=== PATIENT | female | born 1950 | race Caucasian/White ===

== ENCOUNTER 2020-09-05 20:49 | Inpatient (IN) ==
[2020-09-05] MEDS ORDERED: Ipratropium/Albuterol Neb 3 ML ONE (21:03)
[2020-09-05] MEDS ORDERED: methylPREDNISolone 125 MG/2 ML VIAL IVP ONE (21:06)
[2020-09-05] MEDS ORDERED: Ipratropium/Albuterol Neb 3 ML IH ONE ×2 (21:06→21:08)
[2020-09-05 21:36] LABS: INR 1.3; Prothrombin Time 14.9 Seconds (9.4-12.1)
[2020-09-05 21:44] LABS: Basophils % 0.3 %; Eosinophils # 0.2 K/mcL (0.0-0.6); Eosinophils % 1.3 %; Immature Granulocytes % 1.5 % (0-4); Lymphocytes % 6.9 %; Mean Corpuscular HGB Conc 31.3 g/dL (31.6-35.5); Mean Corpuscular Hemoglobin 24.9 pg (28.0-33.3); Mean Corpuscular Volume 79.6 fL (83.0-100.0); Mean Platelet Volume 8.9 fL (9.4-12.4); Monocytes % 6.9 %; Neutrophils # 11.9 K/mcL (1.6-8.9); Nucleated Red Blood Cells 0.1 /100 WBC (0); Platelet Count 452 K/mcL (140-400); Red Blood Count 4.02 M/mcL (3.82-4.97); Red Cell Distribution Width 14.4 % (11.5-14.5); Segmented Neutrophils % 83.1 %; White Blood Count 14.3 K/mcL (4.3-11.1)
[2020-09-05 21:55] LABS: Alanine Aminotransferase 53 Units/L (7-52); Albumin 3.5 g/dL (3.5-5.7); Alkaline Phosphatase 117 Units/L (34-104); Aspartate Amino Transferase 77 Units/L (13-39); BUN/Creatinine Ratio 19 (6-26); Bilirubin,Direct 0.1 mg/dL (0.0-0.2); Bilirubin,Indirect 0.8 mg/dL (0.0-1.0); Bilirubin,Total 0.9 mg/dL (0.3-1.0); Blood Urea Nitrogen 18 mg/dL (8-23); Calcium 9.1 mg/dL (8.6-10.3); Carbon Dioxide 20 mEq/L (23-29); Chloride 101 mEq/L (98-107); Globulin 3.6 g/dL (2.4-3.5); Glucose 137 mg/dL (70-105); Osmolality,Calculated 280 (280-300); Sodium 133 mEq/L (136-145); Total Protein 7.1 g/dL (6.4-8.9); Troponin I < 0.03 ng/mL (< 0.04); eGFR For African Americans > 60 (> 60); eGFR For Non-African Americans 58 (> 60)
[2020-09-05 22:52] LABS: Adenovirus Not Detected (Not Detect); Coronavirus 229E Not Detected (Not Detect); Coronavirus HKU1 Not Detected (Not Detect); Coronavirus NL63 Not Detected (Not Detect); Coronavirus OC43 Not Detected (Not Detect); SARS-CoV-2 Not Detected (Not Detect)
[2020-09-05 22:53] LABS: Bordetella Pertussis Not Detected (Not Detect); Chlamydophila pneumoniae Not Detected (Not Detect); Human Metapneumovirus Not Detected (Not Detect); Human Rhinovirus/Enterovirus Not Detected (Not Detect); Influenza A Subtype 2009 H1 Not Detected (Not Detect); Influenza B Not Detected (Not Detect); Mycoplasma pneumoniae Not Detected (Not Detect); Parainfluenza Virus 1 Not Detected (Not Detect); Parainfluenza Virus 2 Not Detected (Not Detect); Parainfluenza Virus 3 Not Detected (Not Detect); Parainfluenza Virus 4 Not Detected (Not Detect); Respiratory Syncytial Virus Not Detected (Not Detect)
[2020-09-05] MEDS ORDERED: cefTRIAXone 1,000 MG in Water for inj. (sterile) 10 ML IVP ONE (23:17)
[2020-09-05] MEDS ORDERED: Azithromycin 500 MG in 0.9 % Sodium Chloride 250 ML IVPB ONE (23:17)
[2020-09-05] MEDS ORDERED: Acetaminophen IV 1,000 MG/100 ML INFUS..BTL IVPB ONE (23:20)
[2020-09-05] MEDS ORDERED: Ondansetron 4 MG/2 ML VIAL IVP PRN (23:38)
[2020-09-05] MEDS ORDERED: Naloxone 0.4 MG/ML INJ IVP PRN (23:38)
[2020-09-05] MEDS ORDERED: Furosemide 40 MG/4 ML VIAL IVP ONE (23:39)
[2020-09-06] MEDS ORDERED: Cefepime HCl 2,000 MG in 0.9 % Sodium Chloride Mini Bag 100 ML IVPB SCH
[2020-09-06] MEDS ORDERED: Vancomycin 1,250 MG/262.5 ML IV.SOLN IVPB ONE
[2020-09-06] MEDS ORDERED: Perflutren Lipid Microsphere 1.3 ML in 0.9 % Sodium Chloride 8.7 ML IVP PRN (00:24)
[2020-09-06 00:43] LABS: Bacteria,Urine Few per hpf (None-Few); Bilirubin,Urine Negative (Negative); Blood,Urine Negative (Negative); Clarity,Urine Turbid (Clear); Color,Urine Yellow (Yellow); Glucose,Urine (UA) Normal (Normal); Ketones,Urine Negative (Negative); Leukocyte Esterase,Urine Small (Negative); Mucus,Urine Few per lpf (None-Few); Nitrite,Urine Positive (Negative); Protein,Urine Trace mg/dL (Neg-Trace); RBC,Urine 0-3 per hpf (0-3); Specific Gravity,Urine 1.016 (1.010-1.025); Squamous Epithelial Cell,Urine Few per hpf (None-Few); Urobilinogen,Urine Normal (Normal)
[2020-09-06] MEDS: *HR* LORazepam 2 MG/ML VIAL IVP PRN (01:01)
[2020-09-06 02:34] LABS: ABG Base Excess -3 mEq/L (-2 to 3); ABG HCO3 21 mEq/L (21-27); ABG Oxygen Saturation 99 % (95-98); ABG PCO2 34 mmHg (35-45); ABG PO2 140 mmHg (85-104); ABG TCO2 22 mEq/L (20-26); Blood Gas Modality BiLevel
[2020-09-06] MEDS: Ipratropium/Albuterol Neb 3 ML IH SCH ×6 (03:50→23:22)
[2020-09-06 04:19] LABS: Basophils % 0.3 %; Eosinophils % 0.1 %; Hematocrit 30.5 % (35.3-44.9); Hemoglobin 9.7 g/dL (11.5-15.4); Immature Granulocytes % 1.5 % (0-4); Lymphocytes # 0.6 K/mcL (0.6-4.6); Lymphocytes % 5.9 %; Mean Corpuscular HGB Conc 31.8 g/dL (31.6-35.5); Mean Corpuscular Hemoglobin 25.1 pg (28.0-33.3); Mean Platelet Volume 8.7 fL (9.4-12.4); Monocytes # 0.2 K/mcL (0.0-1.3); Monocytes % 1.6 %; Neutrophils # 8.9 K/mcL (1.6-8.9); Platelet Count 366 K/mcL (140-400); Red Blood Count 3.86 M/mcL (3.82-4.97); Red Cell Distribution Width 14.4 % (11.5-14.5); Segmented Neutrophils % 90.6 %; White Blood Count 9.8 K/mcL (4.3-11.1)
[2020-09-06 04:39] LABS: BUN/Creatinine Ratio 18 (6-26); Blood Urea Nitrogen 19 mg/dL (8-23); Calcium 8.8 mg/dL (8.6-10.3); Carbon Dioxide 23 mEq/L (23-29); Chloride 102 mEq/L (98-107); Glucose 208 mg/dL (70-105); Osmolality,Calculated 288 (280-300); Potassium 3.5 mEq/L (3.5-5.1); Sodium 135 mEq/L (136-145); eGFR For African Americans > 60 (> 60); eGFR For Non-African Americans 53 (> 60)
[2020-09-06] MEDS: *HR* Heparin 5,000 UNIT/ML VIAL SQ SCH ×2 (06:07→17:47)
[2020-09-06] MEDS ORDERED: methylPREDNISolone 125 MG/2 ML VIAL IVP SCH (08:00)
[2020-09-06] MEDS: Cefepime HCl 2,000 MG in 0.9 % Sodium Chloride Mini Bag 100 ML IVPB SCH ×2 (12:10→23:39)
[2020-09-06] MEDS ORDERED: carvediloL 25 MG TABLET PO SCH (17:00)
[2020-09-06] MEDS: MethylPREDNISolone 40 MG/ML VIAL IVP SCH ×2 (17:40→23:39)
[2020-09-06] MEDS: Aspirin Enteric Coated 81 MG Tablet PO SCH (17:47)
[2020-09-06] MEDS: Metoprolol XL (24 HR) Succ 50 MG TAB.ER.24H PO SCH (17:53)
[2020-09-06] MEDS ORDERED: Azithromycin 500 MG in 0.9 % Sodium Chloride 250 ML IVPB SCH (18:00)
[2020-09-06] MEDS: hydrALAZINE 25 MG TABLET PO SCH (20:52)
[2020-09-06] MEDS: traZODone 50 MG TABLET PO SCH (20:52)
[2020-09-07 03:10] LABS: Basophils % 0.2 %; Hemoglobin 9.5 g/dL (11.5-15.4); Immature Granulocytes % 1.1 % (0-4); Lymphocytes % 5.1 %; Mean Corpuscular HGB Conc 31.7 g/dL (31.6-35.5); Mean Corpuscular Hemoglobin 25.7 pg (28.0-33.3); Mean Corpuscular Volume 81.1 fL (83.0-100.0); Mean Platelet Volume 8.8 fL (9.4-12.4); Monocytes # 0.8 K/mcL (0.0-1.3); Monocytes % 4.2 %; Neutrophils # 17.5 K/mcL (1.6-8.9); Platelet Count 413 K/mcL (140-400); Red Cell Distribution Width 14.1 % (11.5-14.5); Segmented Neutrophils % 89.4 %
[2020-09-07 03:13] LABS: White Blood Count 19.6 K/mcL (4.3-11.1)
[2020-09-07 03:27] LABS: BUN/Creatinine Ratio 25 (6-26); Blood Urea Nitrogen 21 mg/dL (8-23); Carbon Dioxide 21 mEq/L (23-29); Chloride 106 mEq/L (98-107); Glucose 188 mg/dL (70-105); Osmolality,Calculated 292 (280-300); Potassium 3.6 mEq/L (3.5-5.1); Sodium 137 mEq/L (136-145); eGFR For African Americans > 60 (> 60); eGFR For Non-African Americans > 60 (> 60)
[2020-09-07] MEDS: *HR* LORazepam 2 MG/ML VIAL IVP PRN (03:38)
[2020-09-07] MEDS: Ipratropium/Albuterol Neb 3 ML IH SCH ×5 (04:11→19:55)
[2020-09-07] MEDS: *HR* Heparin 5,000 UNIT/ML VIAL SQ SCH ×2 (06:03→17:27)
[2020-09-07] MEDS: Furosemide 40 MG/4 ML VIAL IVP SCH (08:26)
[2020-09-07] MEDS: Thiamine (B-1) 100 MG TABLET PO SCH (08:26)
[2020-09-07] MEDS: MethylPREDNISolone 40 MG/ML VIAL IVP SCH ×2 (08:26→17:27)
[2020-09-07] MEDS: Loratadine 10 MG TABLET PO SCH (08:27)
[2020-09-07] MEDS: Aspirin Enteric Coated 81 MG Tablet PO SCH (08:27)
[2020-09-07] MEDS: Metoprolol XL (24 HR) Succ 50 MG TAB.ER.24H PO SCH (08:27)
[2020-09-07] MEDS: Isosorbide MONOnitrate (24 HR) 60 MG TAB.ER.24H PO SCH (08:27)
[2020-09-07] MEDS: hydrALAZINE 25 MG TABLET PO SCH ×3 (08:27→20:12)
[2020-09-07] MEDS: PANTOPRAZOLE SODIUM 20 MG PO SCH (08:28)
[2020-09-07] MEDS: amLODIPine 5 MG TABLET PO SCH (08:28)
[2020-09-07] MEDS ORDERED: amLODIPine 5 MG TABLET PO SCH (09:00)
[2020-09-07] MEDS ORDERED: Metoprolol XL (24 HR) Succ 50 MG TAB.ER.24H PO SCH (09:00)
[2020-09-07] MEDS: Cefepime HCl 2,000 MG in 0.9 % Sodium Chloride Mini Bag 100 ML IVPB SCH (11:01)
[2020-09-07] MEDS: Doxycycline 100 MG in 0.9 % Sodium Chloride Mini Bag 100 ML IVPB SCH (17:26)
[2020-09-07] MEDS: traZODone 50 MG TABLET PO SCH (20:12)
[2020-09-08] MEDS: Ipratropium/Albuterol Neb 3 ML IH SCH ×6 (00:12→19:53)
[2020-09-08] MEDS: MethylPREDNISolone 40 MG/ML VIAL IVP SCH ×4 (00:13→23:42)
[2020-09-08] MEDS: Cefepime HCl 2,000 MG in 0.9 % Sodium Chloride Mini Bag 100 ML IVPB SCH ×3 (00:13→23:43)
[2020-09-08] MEDS: *HR* LORazepam 2 MG/ML VIAL IVP PRN (00:55)
[2020-09-08] MEDS: *HR* Heparin 5,000 UNIT/ML VIAL SQ SCH ×2 (05:33→17:43)
[2020-09-08] MEDS: Doxycycline 100 MG in 0.9 % Sodium Chloride Mini Bag 100 ML IVPB SCH ×2 (05:33→17:44)
[2020-09-08 07:10] LABS: Basophils % 0.1 %; Hematocrit 28.8 % (35.3-44.9); Hemoglobin 9.1 g/dL (11.5-15.4); Immature Granulocytes % 1.6 % (0-4); Lymphocytes % 6.5 %; Mean Corpuscular HGB Conc 31.6 g/dL (31.6-35.5); Mean Corpuscular Hemoglobin 24.8 pg (28.0-33.3); Mean Corpuscular Volume 78.5 fL (83.0-100.0); Mean Platelet Volume 8.6 fL (9.4-12.4); Monocytes # 0.6 K/mcL (0.0-1.3); Monocytes % 3.8 %; Neutrophils # 13.1 K/mcL (1.6-8.9); Nucleated Red Blood Cells 0.2 /100 WBC (0); Platelet Count 416 K/mcL (140-400); Red Blood Count 3.67 M/mcL (3.82-4.97); Red Cell Distribution Width 14.5 % (11.5-14.5); White Blood Count 14.9 K/mcL (4.3-11.1)
[2020-09-08 07:38] LABS: BUN/Creatinine Ratio 31 (6-26); Blood Urea Nitrogen 27 mg/dL (8-23); Calcium 8.8 mg/dL (8.6-10.3); Carbon Dioxide 23 mEq/L (23-29); Chloride 105 mEq/L (98-107); Glucose 165 mg/dL (70-105); Osmolality,Calculated 295 (280-300); Potassium 3.6 mEq/L (3.5-5.1); Sodium 138 mEq/L (136-145); eGFR For African Americans > 60 (> 60); eGFR For Non-African Americans > 60 (> 60)
[2020-09-08] MEDS: hydrALAZINE 25 MG TABLET PO SCH ×3 (09:01→19:33)
[2020-09-08] MEDS: Thiamine (B-1) 100 MG TABLET PO SCH (09:02)
[2020-09-08] MEDS: Loratadine 10 MG TABLET PO SCH (09:02)
[2020-09-08] MEDS: Metoprolol XL (24 HR) Succ 50 MG TAB.ER.24H PO SCH (09:02)
[2020-09-08] MEDS: Aspirin Enteric Coated 81 MG Tablet PO SCH (09:03)
[2020-09-08] MEDS: Isosorbide MONOnitrate (24 HR) 60 MG TAB.ER.24H PO SCH (09:03)
[2020-09-08] MEDS: amLODIPine 5 MG TABLET PO SCH (09:03)
[2020-09-08] MEDS: Furosemide 40 MG/4 ML VIAL IVP SCH (09:04)
[2020-09-08] MEDS: PANTOPRAZOLE SODIUM 20 MG PO SCH ×2 (11:45→12:10)
[2020-09-08 16:19] LABS: ANA IgG by ELISA NONE DETECTED (None Detected); Serine Protease-3 Antibody 1 AU/mL (0-19)
[2020-09-08] MEDS: traZODone 50 MG TABLET PO SCH (19:33)
[2020-09-09] MEDS: Ipratropium/Albuterol Neb 3 ML IH SCH ×7 (00:03→23:51)
[2020-09-09 04:21] LABS: Basophils % 0.2 %; Hematocrit 30.9 % (35.3-44.9); Hemoglobin 9.5 g/dL (11.5-15.4); Immature Granulocytes % 3.2 % (0-4); Lymphocytes # 1.2 K/mcL (0.6-4.6); Lymphocytes % 7.1 %; Mean Corpuscular HGB Conc 30.7 g/dL (31.6-35.5); Mean Corpuscular Hemoglobin 24.7 pg (28.0-33.3); Mean Corpuscular Volume 80.3 fL (83.0-100.0); Mean Platelet Volume 8.7 fL (9.4-12.4); Monocytes # 0.7 K/mcL (0.0-1.3); Monocytes % 4.5 %; Neutrophils # 13.8 K/mcL (1.6-8.9); Nucleated Red Blood Cells 0.1 /100 WBC (0); Platelet Count 483 K/mcL (140-400); Red Blood Count 3.85 M/mcL (3.82-4.97); Red Cell Distribution Width 14.5 % (11.5-14.5); White Blood Count 16.3 K/mcL (4.3-11.1)
[2020-09-09 04:45] LABS: BUN/Creatinine Ratio 31 (6-26); Blood Urea Nitrogen 30 mg/dL (8-23); Calcium 9.1 mg/dL (8.6-10.3); Carbon Dioxide 24 mEq/L (23-29); Chloride 105 mEq/L (98-107); Glucose 198 mg/dL (70-105); Osmolality,Calculated 300 (280-300); Potassium 3.8 mEq/L (3.5-5.1); Sodium 139 mEq/L (136-145); eGFR For African Americans > 60 (> 60); eGFR For Non-African Americans 58 (> 60)
[2020-09-09] MEDS: *HR* Heparin 5,000 UNIT/ML VIAL SQ SCH ×2 (06:55→18:03)
[2020-09-09] MEDS: Doxycycline 100 MG in 0.9 % Sodium Chloride Mini Bag 100 ML IVPB SCH ×2 (06:56→18:04)
[2020-09-09] MEDS: Aspirin Enteric Coated 81 MG Tablet PO SCH (09:11)
[2020-09-09] MEDS: hydrALAZINE 25 MG TABLET PO SCH ×3 (09:11→23:51)
[2020-09-09] MEDS: Furosemide 40 MG/4 ML VIAL IVP SCH (09:11)
[2020-09-09] MEDS: Metoprolol XL (24 HR) Succ 50 MG TAB.ER.24H PO SCH (09:11)
[2020-09-09] MEDS: amLODIPine 5 MG TABLET PO SCH (09:12)
[2020-09-09] MEDS: Thiamine (B-1) 100 MG TABLET PO SCH (09:12)
[2020-09-09] MEDS: Loratadine 10 MG TABLET PO SCH (09:12)
[2020-09-09] MEDS: MethylPREDNISolone 40 MG/ML VIAL IVP SCH ×3 (09:19→23:51)
[2020-09-09] MEDS: Cefepime HCl 2,000 MG in 0.9 % Sodium Chloride Mini Bag 100 ML IVPB SCH ×2 (12:46→23:49)
[2020-09-09] MEDS: Isosorbide MONOnitrate (24 HR) 60 MG TAB.ER.24H PO SCH (12:46)
[2020-09-09] MEDS: traZODone 50 MG TABLET PO SCH (23:49)
[2020-09-10] MEDS: Ipratropium/Albuterol Neb 3 ML IH SCH ×6 (03:45→23:26)
[2020-09-10] MEDS: *HR* Heparin 5,000 UNIT/ML VIAL SQ SCH ×2 (06:25→18:09)
[2020-09-10] MEDS: Doxycycline 100 MG in 0.9 % Sodium Chloride Mini Bag 100 ML IVPB SCH ×2 (06:25→18:08)
[2020-09-10 06:29] LABS: Basophils # 0.1 K/mcL (0.0-0.2); Basophils % 0.5 %; Eosinophils % 0.1 %; Hematocrit 32.2 % (35.3-44.9); Hemoglobin 10.1 g/dL (11.5-15.4); Immature Granulocytes % 4.7 % (0-4); Lymphocytes # 1.7 K/mcL (0.6-4.6); Lymphocytes % 8.7 %; Mean Corpuscular HGB Conc 31.4 g/dL (31.6-35.5); Mean Corpuscular Hemoglobin 24.8 pg (28.0-33.3); Mean Corpuscular Volume 78.9 fL (83.0-100.0); Mean Platelet Volume 8.4 fL (9.4-12.4); Monocytes % 4.9 %; Neutrophils # 15.9 K/mcL (1.6-8.9); Nucleated Red Blood Cells 0.1 /100 WBC (0); Platelet Count 462 K/mcL (140-400); Red Blood Count 4.08 M/mcL (3.82-4.97); Red Cell Distribution Width 14.7 % (11.5-14.5); Segmented Neutrophils % 81.1 %; White Blood Count 19.6 K/mcL (4.3-11.1)
[2020-09-10 06:49] LABS: BUN/Creatinine Ratio 36 (6-26); Blood Urea Nitrogen 33 mg/dL (8-23); Carbon Dioxide 24 mEq/L (23-29); Chloride 104 mEq/L (98-107); Glucose 168 mg/dL (70-105); Osmolality,Calculated 295 (280-300); Potassium 4.1 mEq/L (3.5-5.1); Sodium 137 mEq/L (136-145); eGFR For African Americans > 60 (> 60); eGFR For Non-African Americans > 60 (> 60)
[2020-09-10] MEDS: MethylPREDNISolone 40 MG/ML VIAL IVP SCH ×3 (08:41→23:19)
[2020-09-10] MEDS: Aspirin Enteric Coated 81 MG Tablet PO SCH (08:42)
[2020-09-10] MEDS: Loratadine 10 MG TABLET PO SCH (08:42)
[2020-09-10] MEDS: hydrALAZINE 25 MG TABLET PO SCH ×3 (08:43→20:39)
[2020-09-10] MEDS: Furosemide 40 MG/4 ML VIAL IVP SCH (08:43)
[2020-09-10] MEDS: Metoprolol XL (24 HR) Succ 50 MG TAB.ER.24H PO SCH (08:44)
[2020-09-10] MEDS: Thiamine (B-1) 100 MG TABLET PO SCH (08:44)
[2020-09-10] MEDS: amLODIPine 5 MG TABLET PO SCH (08:45)
[2020-09-10] MEDS: Isosorbide MONOnitrate (24 HR) 60 MG TAB.ER.24H PO SCH (08:45)
[2020-09-10] MEDS: PANTOPRAZOLE SODIUM 20 MG PO SCH (08:48)
[2020-09-10] MEDS: Acetaminophen 325 MG TABLET PO PRN (10:38)
[2020-09-10] MEDS: Cefepime HCl 2,000 MG in 0.9 % Sodium Chloride Mini Bag 100 ML IVPB SCH ×2 (12:08→23:20)
[2020-09-10] MEDS: traZODone 50 MG TABLET PO SCH (20:39)
[2020-09-11 01:33] LABS: Basophils # 0.1 K/mcL (0.0-0.2); Basophils % 0.3 %; Hematocrit 32.9 % (35.3-44.9); Hemoglobin 10.3 g/dL (11.5-15.4); Immature Granulocytes % 4.6 % (0-4); Lymphocytes # 1.4 K/mcL (0.6-4.6); Lymphocytes % 6.5 %; Mean Corpuscular HGB Conc 31.3 g/dL (31.6-35.5); Mean Corpuscular Hemoglobin 25.3 pg (28.0-33.3); Mean Corpuscular Volume 80.8 fL (83.0-100.0); Mean Platelet Volume 8.5 fL (9.4-12.4); Monocytes # 1.3 K/mcL (0.0-1.3); Neutrophils # 17.1 K/mcL (1.6-8.9); Nucleated Red Blood Cells 0.1 /100 WBC (0); Platelet Count 470 K/mcL (140-400); Red Blood Count 4.07 M/mcL (3.82-4.97); Red Cell Distribution Width 14.9 % (11.5-14.5); Segmented Neutrophils % 82.6 %; White Blood Count 20.7 K/mcL (4.3-11.1)
[2020-09-11 01:53] LABS: BUN/Creatinine Ratio 43 (6-26); Blood Urea Nitrogen 36 mg/dL (8-23); Calcium 8.9 mg/dL (8.6-10.3); Carbon Dioxide 22 mEq/L (23-29); Chloride 104 mEq/L (98-107); Glucose 240 mg/dL (70-105); Osmolality,Calculated 294 (280-300); Potassium 3.8 mEq/L (3.5-5.1); Sodium 134 mEq/L (136-145); eGFR For African Americans > 60 (> 60); eGFR For Non-African Americans > 60 (> 60)
[2020-09-11] MEDS: Ipratropium/Albuterol Neb 3 ML IH SCH ×7 (03:40→23:00)
[2020-09-11] MEDS: Doxycycline 100 MG in 0.9 % Sodium Chloride Mini Bag 100 ML IVPB SCH ×2 (06:11→17:58)
[2020-09-11] MEDS: *HR* Heparin 5,000 UNIT/ML VIAL SQ SCH ×2 (06:12→18:05)
[2020-09-11] MEDS: MethylPREDNISolone 40 MG/ML VIAL IVP SCH ×2 (08:26→15:59)
[2020-09-11] MEDS: Aspirin Enteric Coated 81 MG Tablet PO SCH (08:26)
[2020-09-11] MEDS: hydrALAZINE 25 MG TABLET PO SCH ×3 (08:27→20:17)
[2020-09-11] MEDS: amLODIPine 5 MG TABLET PO SCH (08:27)
[2020-09-11] MEDS: Loratadine 10 MG TABLET PO SCH (08:27)
[2020-09-11] MEDS: Furosemide 40 MG/4 ML VIAL IVP SCH (08:27)
[2020-09-11] MEDS: Isosorbide MONOnitrate (24 HR) 60 MG TAB.ER.24H PO SCH (08:27)
[2020-09-11] MEDS: Metoprolol XL (24 HR) Succ 50 MG TAB.ER.24H PO SCH (08:28)
[2020-09-11] MEDS: Thiamine (B-1) 100 MG TABLET PO SCH (08:28)
[2020-09-11] MEDS: PANTOPRAZOLE SODIUM 20 MG PO SCH (08:28)
[2020-09-11] MEDS: Cefepime HCl 2,000 MG in 0.9 % Sodium Chloride Mini Bag 100 ML IVPB SCH (11:58)
[2020-09-11] MEDS: traZODone 50 MG TABLET PO SCH (20:17)
[2020-09-12] MEDS: Cefepime HCl 2,000 MG in 0.9 % Sodium Chloride Mini Bag 100 ML IVPB SCH ×2 (00:01→11:27)
[2020-09-12 00:57] LABS: Basophils # 0.1 K/mcL (0.0-0.2); Basophils % 0.3 %; Eosinophils % 0.1 %; Hematocrit 34.8 % (35.3-44.9); Hemoglobin 10.9 g/dL (11.5-15.4); Immature Granulocytes % 4.7 % (0-4); Lymphocytes # 1.7 K/mcL (0.6-4.6); Lymphocytes % 7.4 %; Mean Corpuscular HGB Conc 31.3 g/dL (31.6-35.5); Mean Corpuscular Hemoglobin 25.3 pg (28.0-33.3); Mean Corpuscular Volume 80.7 fL (83.0-100.0); Mean Platelet Volume 8.4 fL (9.4-12.4); Monocytes # 1.7 K/mcL (0.0-1.3); Monocytes % 7.3 %; Neutrophils # 18.9 K/mcL (1.6-8.9); Nucleated Red Blood Cells 0.1 /100 WBC (0); Platelet Count 505 K/mcL (140-400); Red Blood Count 4.31 M/mcL (3.82-4.97); Red Cell Distribution Width 15.2 % (11.5-14.5); Segmented Neutrophils % 80.2 %; White Blood Count 23.6 K/mcL (4.3-11.1)
[2020-09-12 01:12] LABS: Calcium 8.8 mg/dL (8.6-10.3)
[2020-09-12] MEDS: Ipratropium/Albuterol Neb 3 ML IH SCH ×5 (04:05→20:38)
[2020-09-12] MEDS: Doxycycline 100 MG in 0.9 % Sodium Chloride Mini Bag 100 ML IVPB SCH ×2 (06:00→18:37)
[2020-09-12] MEDS: *HR* Heparin 5,000 UNIT/ML VIAL SQ SCH ×2 (06:02→18:36)
[2020-09-12] MEDS: MethylPREDNISolone 40 MG/ML VIAL IVP SCH ×3 (07:53→15:32)
[2020-09-12] MEDS: Furosemide 40 MG/4 ML VIAL IVP SCH (07:53)
[2020-09-12] MEDS: Thiamine (B-1) 100 MG TABLET PO SCH (07:54)
[2020-09-12] MEDS: amLODIPine 5 MG TABLET PO SCH (07:54)
[2020-09-12] MEDS: Metoprolol XL (24 HR) Succ 50 MG TAB.ER.24H PO SCH (07:54)
[2020-09-12] MEDS: Aspirin Enteric Coated 81 MG Tablet PO SCH (07:55)
[2020-09-12] MEDS: hydrALAZINE 25 MG TABLET PO SCH ×3 (07:55→21:23)
[2020-09-12] MEDS: Sulfamethoxazole/Trimeth DS 1 EACH TABLET PO SCH (07:55)
[2020-09-12] MEDS: Isosorbide MONOnitrate (24 HR) 60 MG TAB.ER.24H PO SCH (07:55)
[2020-09-12] MEDS: Loratadine 10 MG TABLET PO SCH (07:55)
[2020-09-12] MEDS: PANTOPRAZOLE SODIUM 20 MG PO SCH (07:56)
[2020-09-12] MEDS: traZODone 50 MG TABLET PO SCH (21:23)
[2020-09-13] MEDS: Ipratropium/Albuterol Neb 3 ML IH SCH ×7 (00:04→23:57)
[2020-09-13] MEDS: MethylPREDNISolone 40 MG/ML VIAL IVP SCH ×3 (00:17→16:00)
[2020-09-13] MEDS: Cefepime HCl 2,000 MG in 0.9 % Sodium Chloride Mini Bag 100 ML IVPB SCH ×2 (00:18→11:48)
[2020-09-13 04:14] LABS: Basophils # 0.1 K/mcL (0.0-0.2); Basophils % 0.4 %; Hematocrit 33.5 % (35.3-44.9); Hemoglobin 10.4 g/dL (11.5-15.4); Immature Granulocytes % 5.1 % (0-4); Lymphocytes # 1.1 K/mcL (0.6-4.6); Mean Corpuscular Hemoglobin 25.1 pg (28.0-33.3); Mean Corpuscular Volume 80.9 fL (83.0-100.0); Mean Platelet Volume 8.5 fL (9.4-12.4); Monocytes # 1.4 K/mcL (0.0-1.3); Monocytes % 6.4 %; Neutrophils # 18.5 K/mcL (1.6-8.9); Platelet Count 409 K/mcL (140-400); Red Blood Count 4.14 M/mcL (3.82-4.97); Red Cell Distribution Width 15.6 % (11.5-14.5); Segmented Neutrophils % 83.1 %; White Blood Count 22.3 K/mcL (4.3-11.1)
[2020-09-13 04:36] LABS: Potassium 4.6 mEq/L (3.5-5.1)
[2020-09-13] MEDS: *HR* Heparin 5,000 UNIT/ML VIAL SQ SCH ×2 (05:32→17:00)
[2020-09-13] MEDS: Doxycycline 100 MG in 0.9 % Sodium Chloride Mini Bag 100 ML IVPB SCH ×2 (05:32→17:00)
[2020-09-13 05:46] LABS: Platelet Estimate Normal (Normal)
[2020-09-13] MEDS: Metoprolol XL (24 HR) Succ 50 MG TAB.ER.24H PO SCH (08:27)
[2020-09-13] MEDS: Aspirin Enteric Coated 81 MG Tablet PO SCH (08:27)
[2020-09-13] MEDS: Sulfamethoxazole/Trimeth DS 1 EACH TABLET PO SCH (08:28)
[2020-09-13] MEDS: Loratadine 10 MG TABLET PO SCH (08:28)
[2020-09-13] MEDS: hydrALAZINE 25 MG TABLET PO SCH ×3 (08:28→20:20)
[2020-09-13] MEDS: Thiamine (B-1) 100 MG TABLET PO SCH (08:28)
[2020-09-13] MEDS: Furosemide 40 MG/4 ML VIAL IVP SCH (08:29)
[2020-09-13] MEDS: Isosorbide MONOnitrate (24 HR) 60 MG TAB.ER.24H PO SCH (08:29)
[2020-09-13] MEDS: PANTOPRAZOLE SODIUM 20 MG PO SCH (08:30)
[2020-09-13] MEDS: amLODIPine 5 MG TABLET PO SCH (08:30)
[2020-09-13] MEDS: traZODone 50 MG TABLET PO SCH (20:19)
[2020-09-14] MEDS: MethylPREDNISolone 40 MG/ML VIAL IVP SCH ×3 (00:49→15:23)
[2020-09-14] MEDS: Cefepime HCl 2,000 MG in 0.9 % Sodium Chloride Mini Bag 100 ML IVPB SCH (00:50)
[2020-09-14] MEDS: Ipratropium/Albuterol Neb 3 ML IH SCH ×6 (04:03→23:25)
[2020-09-14] MEDS: *HR* Heparin 5,000 UNIT/ML VIAL SQ SCH ×2 (06:17→17:05)
[2020-09-14] MEDS: Doxycycline 100 MG in 0.9 % Sodium Chloride Mini Bag 100 ML IVPB SCH ×2 (06:18→17:05)
[2020-09-14 06:46] LABS: Hematocrit 35.2 % (35.3-44.9); Hemoglobin 11.1 g/dL (11.5-15.4); Mean Corpuscular HGB Conc 31.5 g/dL (31.6-35.5); Mean Corpuscular Hemoglobin 25.8 pg (28.0-33.3); Mean Corpuscular Volume 81.9 fL (83.0-100.0); Mean Platelet Volume 8.8 fL (9.4-12.4); Platelet Count 377 K/mcL (140-400); Red Cell Distribution Width 15.9 % (11.5-14.5); White Blood Count 21.2 K/mcL (4.3-11.1)
[2020-09-14 07:08] LABS: Calcium 9.2 mg/dL (8.6-10.3); Potassium 4.6 mEq/L (3.5-5.1)
[2020-09-14] MEDS: Metoprolol XL (24 HR) Succ 50 MG TAB.ER.24H PO SCH (08:01)
[2020-09-14] MEDS: Isosorbide MONOnitrate (24 HR) 60 MG TAB.ER.24H PO SCH (08:02)
[2020-09-14] MEDS: Aspirin Enteric Coated 81 MG Tablet PO SCH (08:02)
[2020-09-14] MEDS: Sulfamethoxazole/Trimeth DS 1 EACH TABLET PO SCH (08:02)
[2020-09-14] MEDS: Loratadine 10 MG TABLET PO SCH (08:02)
[2020-09-14] MEDS: hydrALAZINE 25 MG TABLET PO SCH ×3 (08:02→20:26)
[2020-09-14] MEDS: Thiamine (B-1) 100 MG TABLET PO SCH (08:02)
[2020-09-14] MEDS: amLODIPine 5 MG TABLET PO SCH (08:02)
[2020-09-14] MEDS: PANTOPRAZOLE SODIUM 20 MG PO SCH (08:03)
[2020-09-14] MEDS: Cefepime HCl 1,000 MG in Water for inj. (sterile) 10 ML IVP SCH (11:14)
[2020-09-14 11:45] LABS: Lymphocytes # 1.5 K/mcL (0.6-4.6); Monocytes # 0.6 K/mcL (0.0-1.3); Neutrophils # 18.9 K/mcL (1.6-8.9)
[2020-09-14 11:46] LABS: Anisocytosis 1+ (Not Present); Platelet Estimate Normal (Normal); Poikilocytosis 1+ (Not Present); Toxic Granulation Present (Not Present)
[2020-09-14] MEDS: traZODone 50 MG TABLET PO SCH (20:26)
[2020-09-15] MEDS: MethylPREDNISolone 40 MG/ML VIAL IVP SCH ×3 (00:20→15:16)
[2020-09-15] MEDS: Cefepime HCl 1,000 MG in Water for inj. (sterile) 10 ML IVP SCH ×2 (00:20→11:08)
[2020-09-15] MEDS: *HR* LORazepam 2 MG/ML VIAL IVP PRN ×2 (01:34→20:14)
[2020-09-15] MEDS: Ipratropium/Albuterol Neb 3 ML IH SCH ×6 (04:13→23:44)
[2020-09-15] MEDS: Doxycycline 100 MG in 0.9 % Sodium Chloride Mini Bag 100 ML IVPB SCH ×2 (06:27→17:44)
[2020-09-15] MEDS: *HR* Heparin 5,000 UNIT/ML VIAL SQ SCH ×2 (06:27→17:46)
[2020-09-15] MEDS: Isosorbide MONOnitrate (24 HR) 60 MG TAB.ER.24H PO SCH (07:37)
[2020-09-15] MEDS: amLODIPine 5 MG TABLET PO SCH (07:37)
[2020-09-15] MEDS: hydrALAZINE 25 MG TABLET PO SCH ×3 (07:37→20:13)
[2020-09-15] MEDS: Metoprolol XL (24 HR) Succ 50 MG TAB.ER.24H PO SCH (07:37)
[2020-09-15] MEDS: Sulfamethoxazole/Trimeth DS 1 EACH TABLET PO SCH (07:37)
[2020-09-15] MEDS: Loratadine 10 MG TABLET PO SCH (07:37)
[2020-09-15] MEDS: Aspirin Enteric Coated 81 MG Tablet PO SCH (07:37)
[2020-09-15] MEDS: Thiamine (B-1) 100 MG TABLET PO SCH (07:37)
[2020-09-15] MEDS: PANTOPRAZOLE SODIUM 20 MG PO SCH (07:38)
[2020-09-15 10:44] LABS: Mean Platelet Volume 8.8 fL (9.4-12.4); Red Cell Distribution Width 15.9 % (11.5-14.5)
[2020-09-15 10:46] LABS: Hematocrit 35.9 % (35.3-44.9); Mean Corpuscular HGB Conc 30.6 g/dL (31.6-35.5); Mean Corpuscular Hemoglobin 24.8 pg (28.0-33.3); Platelet Count 393 K/mcL (140-400); Red Blood Count 4.43 M/mcL (3.82-4.97)
[2020-09-15 11:04] LABS: Calcium 9.3 mg/dL (8.6-10.3); Magnesium 2.3 mg/dL (1.6-2.6); Phosphorous 3.6 mg/dL (2.7-4.5); Potassium 5.3 mEq/L (3.5-5.1)
[2020-09-15 11:05] LABS: White Blood Count 30.2 K/mcL (4.3-11.1)
[2020-09-15] MEDS ORDERED: Calcium Gluconate 1gm/50mL 1 GM/50 ML BAG IVPB ONE (11:10)
[2020-09-15 11:18] LABS: Lymphocytes # 1.2 K/mcL (0.6-4.6); Neutrophils # 27.8 K/mcL (1.6-8.9)
[2020-09-15 11:19] LABS: Anisocytosis 1+ (Not Present); Platelet Estimate Normal (Normal); Poikilocytosis 1+ (Not Present); Reactive Lymphocytes Present (Not Present); Toxic Granulation Present (Not Present)
[2020-09-15 17:50] LABS: Bilirubin,Urine Negative (Negative); Blood,Urine Negative (Negative); Clarity,Urine Clear (Clear); Color,Urine Colorless (Yellow); Glucose,Urine (UA) 300 mg/dL (Normal); Ketones,Urine Negative (Negative); Leukocyte Esterase,Urine Negative (Negative); Nitrite,Urine Negative (Negative); Protein,Urine Negative (Neg-Trace); RBC,Urine 0-3 per hpf (0-3); Specific Gravity,Urine 1.016 (1.010-1.025); Urobilinogen,Urine Normal (Normal); WBC,Urine 0-3 per hpf (0-3)
[2020-09-15] MEDS: traZODone 50 MG TABLET PO SCH (20:14)
[2020-09-16] MEDS: MethylPREDNISolone 40 MG/ML VIAL IVP SCH ×3 (00:03→15:52)
[2020-09-16] MEDS: Cefepime HCl 1,000 MG in Water for inj. (sterile) 10 ML IVP SCH ×2 (00:03→11:39)
[2020-09-16 00:32] LABS: Adenovirus Not Detected (Not Detect); Bordetella Pertussis Not Detected (Not Detect); Chlamydophila pneumoniae Not Detected (Not Detect); Coronavirus 229E Not Detected (Not Detect); Coronavirus HKU1 Not Detected (Not Detect); Coronavirus NL63 Not Detected (Not Detect); Coronavirus OC43 Not Detected (Not Detect); Human Metapneumovirus Not Detected (Not Detect); Human Rhinovirus/Enterovirus Not Detected (Not Detect); Influenza A Subtype 2009 H1 Not Detected (Not Detect); Influenza B Not Detected (Not Detect); Mycoplasma pneumoniae Not Detected (Not Detect); Parainfluenza Virus 1 Not Detected (Not Detect); Parainfluenza Virus 2 Not Detected (Not Detect); Parainfluenza Virus 3 Not Detected (Not Detect); Parainfluenza Virus 4 Not Detected (Not Detect); Respiratory Syncytial Virus Not Detected (Not Detect); SARS-CoV-2 Not Detected (Not Detect)
[2020-09-16 01:45] LABS: Immature Granulocytes % 5.1 % (0-4); Mean Corpuscular HGB Conc 31.2 g/dL (31.6-35.5)
[2020-09-16 01:47] LABS: Basophils # 0.1 K/mcL (0.0-0.2); Basophils % 0.4 %; Hematocrit 35.3 % (35.3-44.9); Lymphocytes # 1.6 K/mcL (0.6-4.6); Lymphocytes % 5.6 %; Mean Corpuscular Hemoglobin 25.2 pg (28.0-33.3); Mean Platelet Volume 9.1 fL (9.4-12.4); Monocytes # 1.4 K/mcL (0.0-1.3); Monocytes % 4.6 %; Neutrophils # 24.7 K/mcL (1.6-8.9); Platelet Count 375 K/mcL (140-400); Red Blood Count 4.36 M/mcL (3.82-4.97); Red Cell Distribution Width 16.1 % (11.5-14.5); Segmented Neutrophils % 84.3 %; White Blood Count 29.3 K/mcL (4.3-11.1)
[2020-09-16 01:50] LABS: INR 1.1; Prothrombin Time 12.8 Seconds (9.4-12.1)
[2020-09-16 02:04] LABS: Calcium 9.7 mg/dL (8.6-10.3); Magnesium 2.2 mg/dL (1.6-2.6); Phosphorous 3.8 mg/dL (2.7-4.5)
[2020-09-16 02:05] LABS: Platelet Estimate Normal (Normal); Poikilocytosis 1+ (Not Present)
[2020-09-16 02:06] LABS: Burr Cells 1+ (Not Present)
[2020-09-16] MEDS: Ipratropium/Albuterol Neb 3 ML IH SCH ×6 (04:06→23:56)
[2020-09-16] MEDS: *HR* Heparin 5,000 UNIT/ML VIAL SQ SCH ×2 (05:36→17:24)
[2020-09-16] MEDS: Doxycycline 100 MG in 0.9 % Sodium Chloride Mini Bag 100 ML IVPB SCH ×2 (05:36→17:24)
[2020-09-16] MEDS ORDERED: *HR* EPINEPHrine 1 MG/10 ML SYRINGE INTRATRACH PRN (06:54)
[2020-09-16] MEDS ORDERED: *HR* FentaNYL (PF) 100 MCG/2 ML VIAL IVP ONE (06:54)
[2020-09-16] MEDS ORDERED: Lidocaine Viscous Oral Soln 15 ML SOLUTION MM ONE (06:54)
[2020-09-16] MEDS ORDERED: *HR* Midazolam HCl 5 MG/5 ML VIAL IVP ONE (06:54)
[2020-09-16] MEDS ORDERED: 0.9 % Sodium Chloride 1,000 ML IVC SCH (07:00)
[2020-09-16] MEDS: Metoprolol XL (24 HR) Succ 50 MG TAB.ER.24H PO SCH (10:25)
[2020-09-16] MEDS: Thiamine (B-1) 100 MG TABLET PO SCH (10:25)
[2020-09-16] MEDS: Aspirin Enteric Coated 81 MG Tablet PO SCH (10:26)
[2020-09-16] MEDS: Isosorbide MONOnitrate (24 HR) 60 MG TAB.ER.24H PO SCH (10:26)
[2020-09-16] MEDS: amLODIPine 5 MG TABLET PO SCH (10:26)
[2020-09-16] MEDS: Sulfamethoxazole/Trimeth DS 1 EACH TABLET PO SCH (10:26)
[2020-09-16] MEDS: Loratadine 10 MG TABLET PO SCH (10:26)
[2020-09-16] MEDS: hydrALAZINE 25 MG TABLET PO SCH ×3 (10:26→20:25)
[2020-09-16] MEDS: PANTOPRAZOLE SODIUM 20 MG PO SCH (10:29)
[2020-09-16] MEDS: *HR* LORazepam 2 MG/ML VIAL IVP PRN (20:24)
[2020-09-16] MEDS: traZODone 50 MG TABLET PO SCH (20:24)
[2020-09-16 20:56] LABS: Appearance of Body Fluid Cloudy (Clear); Volume of Body Fluid 15 mL
[2020-09-17] MEDS: Cefepime HCl 1,000 MG in Water for inj. (sterile) 10 ML IVP SCH ×2 (00:41→13:35)
[2020-09-17] MEDS: MethylPREDNISolone 40 MG/ML VIAL IVP SCH ×3 (00:42→16:34)
[2020-09-17] MEDS: Ipratropium/Albuterol Neb 3 ML IH SCH ×6 (04:00→23:24)
[2020-09-17 04:54] LABS: Immature Granulocytes % 4.5 % (0-4); Lymphocytes % 4.4 %; Red Cell Distribution Width 16.6 % (11.5-14.5)
[2020-09-17 04:55] LABS: Basophils # 0.1 K/mcL (0.0-0.2); Basophils % 0.5 %; Hematocrit 35.9 % (35.3-44.9); Hemoglobin 11.1 g/dL (11.5-15.4); Lymphocytes # 1.1 K/mcL (0.6-4.6); Mean Corpuscular HGB Conc 30.9 g/dL (31.6-35.5); Mean Corpuscular Hemoglobin 24.8 pg (28.0-33.3); Mean Corpuscular Volume 80.3 fL (83.0-100.0); Monocytes # 1.1 K/mcL (0.0-1.3); Monocytes % 4.2 %; Neutrophils # 22.3 K/mcL (1.6-8.9); Platelet Count 324 K/mcL (140-400); Red Blood Count 4.47 M/mcL (3.82-4.97); Segmented Neutrophils % 86.4 %; White Blood Count 25.8 K/mcL (4.3-11.1)
[2020-09-17] MEDS: Doxycycline 100 MG in 0.9 % Sodium Chloride Mini Bag 100 ML IVPB SCH ×2 (05:00→17:35)
[2020-09-17] MEDS: *HR* Heparin 5,000 UNIT/ML VIAL SQ SCH ×2 (05:01→17:35)
[2020-09-17 05:13] LABS: Calcium 9.5 mg/dL (8.6-10.3); Potassium 5.1 mEq/L (3.5-5.1)
[2020-09-17 05:55] LABS: Platelet Estimate Normal (Normal)
[2020-09-17] MEDS: PANTOPRAZOLE SODIUM 20 MG PO SCH (09:00)
[2020-09-17] MEDS: Loratadine 10 MG TABLET PO SCH (09:31)
[2020-09-17] MEDS: Sulfamethoxazole/Trimeth DS 1 EACH TABLET PO SCH (09:31)
[2020-09-17] MEDS: Aspirin Enteric Coated 81 MG Tablet PO SCH (09:31)
[2020-09-17] MEDS: hydrALAZINE 25 MG TABLET PO SCH ×3 (09:31→21:52)
[2020-09-17] MEDS: Isosorbide MONOnitrate (24 HR) 60 MG TAB.ER.24H PO SCH (09:31)
[2020-09-17] MEDS: amLODIPine 5 MG TABLET PO SCH (09:32)
[2020-09-17] MEDS: Thiamine (B-1) 100 MG TABLET PO SCH (09:32)
[2020-09-17] MEDS: Metoprolol XL (24 HR) Succ 50 MG TAB.ER.24H PO SCH (09:32)
[2020-09-17] MEDS ORDERED: Dextrose Gel 15 GM/37.5 ML TUBE PO PRN ×2 (11:08)
[2020-09-17] MEDS ORDERED: D5% in Water 1,000 ML IVC PRN (11:08)
[2020-09-17] MEDS ORDERED: *HR* Dextrose 50 % in Water (Vial) 50 ML VIAL IVP PRN (11:08)
[2020-09-17] MEDS: Insulin LISPRO 300 UNITS/3 ML VIAL SQ SCH ×3 (13:35→21:54)
[2020-09-17 14:11] LABS: Uric Acid 6.7 mg/dL (2.3-7.6)
[2020-09-17 14:49] LABS: Estimated Average Glucose 166 mg/dl
[2020-09-17 15:02] LABS: Hepatitis B Surface Antigen Nonreactive (Nonreactive)
[2020-09-17 15:31] LABS: Hepatitis C Virus Antibody Nonreactive (Nonreactive)
[2020-09-17 15:32] LABS: Hepatitis A Antibody IgM Nonreactive (Nonreactive); Hepatitis B Core IgM Nonreactive (Nonreactive)
[2020-09-17] MEDS: traZODone 50 MG TABLET PO SCH (21:52)
[2020-09-17] MEDS: Insulin DETEMIR 100 UNIT/ML X5UNITS SQ SCH (21:53)
[2020-09-18] MEDS: Cefepime HCl 1,000 MG in Water for inj. (sterile) 10 ML IVP SCH ×2 (00:31→11:52)
[2020-09-18] MEDS: MethylPREDNISolone 40 MG/ML VIAL IVP SCH ×3 (00:31→15:29)
[2020-09-18] MEDS: Ipratropium/Albuterol Neb 3 ML IH SCH ×6 (04:32→22:55)
[2020-09-18] MEDS: *HR* Heparin 5,000 UNIT/ML VIAL SQ SCH ×2 (05:48→17:24)
[2020-09-18] MEDS: Doxycycline 100 MG in 0.9 % Sodium Chloride Mini Bag 100 ML IVPB SCH ×2 (05:48→17:23)
[2020-09-18 05:50] LABS: Nucleated Red Blood Cells 0.1 /100 WBC (0)
[2020-09-18 05:51] LABS: Basophils # 0.1 K/mcL (0.0-0.2); Basophils % 0.2 %; Hematocrit 37.5 % (35.3-44.9); Hemoglobin 11.7 g/dL (11.5-15.4); Immature Granulocytes % 3.7 % (0-4); Lymphocytes # 1.5 K/mcL (0.6-4.6); Lymphocytes % 5.7 %; Mean Corpuscular HGB Conc 31.2 g/dL (31.6-35.5); Mean Corpuscular Hemoglobin 24.9 pg (28.0-33.3); Mean Platelet Volume 9.2 fL (9.4-12.4); Monocytes # 0.8 K/mcL (0.0-1.3); Monocytes % 3.2 %; Neutrophils # 22.7 K/mcL (1.6-8.9); Platelet Count 286 K/mcL (140-400); Red Blood Count 4.69 M/mcL (3.82-4.97); Red Cell Distribution Width 16.8 % (11.5-14.5); Segmented Neutrophils % 87.2 %
[2020-09-18 06:09] LABS: Calcium 9.4 mg/dL (8.6-10.3)
[2020-09-18] MEDS: Sulfamethoxazole/Trimeth DS 1 EACH TABLET PO SCH (08:00)
[2020-09-18] MEDS: Thiamine (B-1) 100 MG TABLET PO SCH (08:00)
[2020-09-18] MEDS: amLODIPine 5 MG TABLET PO SCH (08:00)
[2020-09-18] MEDS: Aspirin Enteric Coated 81 MG Tablet PO SCH (08:00)
[2020-09-18] MEDS: PANTOPRAZOLE SODIUM 20 MG PO SCH (08:00)
[2020-09-18] MEDS: Metoprolol XL (24 HR) Succ 50 MG TAB.ER.24H PO SCH (08:00)
[2020-09-18] MEDS: Loratadine 10 MG TABLET PO SCH (08:00)
[2020-09-18] MEDS: Isosorbide MONOnitrate (24 HR) 60 MG TAB.ER.24H PO SCH (08:00)
[2020-09-18] MEDS: hydrALAZINE 25 MG TABLET PO SCH ×3 (08:00→21:21)
[2020-09-18] MEDS: Insulin LISPRO 300 UNITS/3 ML VIAL SQ SCH ×4 (08:01→21:26)
[2020-09-18] MEDS: traZODone 50 MG TABLET PO SCH (21:21)
[2020-09-18] MEDS: Insulin DETEMIR 100 UNIT/ML X5UNITS SQ SCH (21:22)
[2020-09-19] MEDS: Cefepime HCl 1,000 MG in Water for inj. (sterile) 10 ML IVP SCH ×2 (00:08→12:49)
[2020-09-19] MEDS: MethylPREDNISolone 40 MG/ML VIAL IVP SCH ×3 (00:10→17:02)
[2020-09-19] MEDS: Ipratropium/Albuterol Neb 3 ML IH SCH ×5 (04:52→20:24)
[2020-09-19] MEDS: *HR* Heparin 5,000 UNIT/ML VIAL SQ SCH ×2 (05:34→17:02)
[2020-09-19] MEDS: Doxycycline 100 MG in 0.9 % Sodium Chloride Mini Bag 100 ML IVPB SCH (05:35)
[2020-09-19 06:26] LABS: Basophils % 0.2 %; Mean Corpuscular Volume 80.5 fL (83.0-100.0); Nucleated Red Blood Cells 0.1 /100 WBC (0)
[2020-09-19 06:27] LABS: Basophils # 0.1 K/mcL (0.0-0.2); Hematocrit 38.4 % (35.3-44.9); Hemoglobin 12.1 g/dL (11.5-15.4); Immature Granulocytes % 3.4 % (0-4); Lymphocytes # 1.2 K/mcL (0.6-4.6); Lymphocytes % 4.5 %; Mean Corpuscular HGB Conc 31.5 g/dL (31.6-35.5); Mean Corpuscular Hemoglobin 25.4 pg (28.0-33.3); Mean Platelet Volume 9.3 fL (9.4-12.4); Monocytes # 0.9 K/mcL (0.0-1.3); Monocytes % 3.3 %; Platelet Count 279 K/mcL (140-400); Red Blood Count 4.77 M/mcL (3.82-4.97); Segmented Neutrophils % 88.6 %; White Blood Count 27.2 K/mcL (4.3-11.1)
[2020-09-19 06:37] LABS: Neutrophils # 24.1 K/mcL (1.6-8.9)
[2020-09-19 06:46] LABS: Calcium 9.8 mg/dL (8.6-10.3); Potassium 4.6 mEq/L (3.5-5.1)
[2020-09-19 07:05] LABS: Anisocytosis 1+ (Not Present); Platelet Estimate Normal (Normal); Toxic Granulation Present (Not Present)
[2020-09-19] MEDS: Loratadine 10 MG TABLET PO SCH (08:20)
[2020-09-19] MEDS: hydrALAZINE 25 MG TABLET PO SCH ×3 (08:20→20:48)
[2020-09-19] MEDS: amLODIPine 5 MG TABLET PO SCH (08:20)
[2020-09-19] MEDS: Sulfamethoxazole/Trimeth DS 1 EACH TABLET PO SCH (08:20)
[2020-09-19] MEDS: Aspirin Enteric Coated 81 MG Tablet PO SCH (08:20)
[2020-09-19] MEDS: Thiamine (B-1) 100 MG TABLET PO SCH (08:20)
[2020-09-19] MEDS: Metoprolol XL (24 HR) Succ 50 MG TAB.ER.24H PO SCH (08:20)
[2020-09-19] MEDS: Isosorbide MONOnitrate (24 HR) 60 MG TAB.ER.24H PO SCH (08:21)
[2020-09-19] MEDS: Insulin LISPRO 300 UNITS/3 ML VIAL SQ SCH ×4 (08:25→20:49)
[2020-09-19] MEDS: PANTOPRAZOLE SODIUM 20 MG PO SCH (08:34)
[2020-09-19 20:13] LABS: Potassium 4.8 mEq/L (3.5-5.1)
[2020-09-19 20:14] LABS: Albumin 3.9 g/dL (3.5-5.7); Albumin/Globulin Ratio 1.4 (1.1-2.2); Bilirubin,Total 0.5 mg/dL (0.3-1.0); Calcium 9.7 mg/dL (8.6-10.3); Globulin 2.8 g/dL (2.4-3.5); Total Protein 6.7 g/dL (6.4-8.9)
[2020-09-19] MEDS: traZODone 50 MG TABLET PO SCH (20:44)
[2020-09-19] MEDS: Insulin DETEMIR 100 UNIT/ML X5UNITS SQ SCH (20:47)
[2020-09-19] MEDS: *HR* LORazepam 2 MG/ML VIAL IVP PRN (21:23)
[2020-09-20] MEDS: Ipratropium/Albuterol Neb 3 ML IH SCH ×6 (00:18→20:40)
[2020-09-20 04:32] LABS: Calcium 9.9 mg/dL (8.6-10.3)
[2020-09-20] MEDS: Cefepime HCl 1,000 MG in Water for inj. (sterile) 10 ML IVP SCH ×2 (04:43→13:04)
[2020-09-20] MEDS: MethylPREDNISolone 40 MG/ML VIAL IVP SCH ×3 (04:43→16:24)
[2020-09-20] MEDS: *HR* Heparin 5,000 UNIT/ML VIAL SQ SCH ×2 (04:44→16:24)
[2020-09-20] MEDS: *HR* LORazepam 2 MG/ML VIAL IVP PRN (08:26)
[2020-09-20] MEDS: Thiamine (B-1) 100 MG TABLET PO SCH (08:27)
[2020-09-20] MEDS: Metoprolol XL (24 HR) Succ 50 MG TAB.ER.24H PO SCH (08:27)
[2020-09-20] MEDS: Isosorbide MONOnitrate (24 HR) 60 MG TAB.ER.24H PO SCH (08:30)
[2020-09-20] MEDS: Aspirin Enteric Coated 81 MG Tablet PO SCH (08:30)
[2020-09-20] MEDS: hydrALAZINE 25 MG TABLET PO SCH ×3 (08:30→20:10)
[2020-09-20] MEDS: Loratadine 10 MG TABLET PO SCH (08:30)
[2020-09-20] MEDS: Sulfamethoxazole/Trimeth DS 1 EACH TABLET PO SCH (08:30)
[2020-09-20] MEDS: PANTOPRAZOLE SODIUM 20 MG PO SCH (08:31)
[2020-09-20] MEDS: amLODIPine 5 MG TABLET PO SCH (08:31)
[2020-09-20] MEDS: Insulin LISPRO 300 UNITS/3 ML VIAL SQ SCH ×4 (08:32→20:12)
[2020-09-20] MEDS: traZODone 50 MG TABLET PO SCH (20:10)
[2020-09-20] MEDS: Insulin DETEMIR 100 UNIT/ML X5UNITS SQ SCH (20:11)
[2020-09-21] MEDS: Ipratropium/Albuterol Neb 3 ML IH SCH ×7 (00:01→23:53)
[2020-09-21] MEDS: Cefepime HCl 1,000 MG in Water for inj. (sterile) 10 ML IVP SCH ×2 (01:31→11:37)
[2020-09-21] MEDS: MethylPREDNISolone 40 MG/ML VIAL IVP SCH ×3 (01:31→15:36)
[2020-09-21 04:33] LABS: Basophils % 0.1 %; Eosinophils % 0.1 %; Hematocrit 36.5 % (35.3-44.9); Hemoglobin 11.6 g/dL (11.5-15.4); Immature Granulocytes % 2.2 % (0-4); Lymphocytes # 0.7 K/mcL (0.6-4.6); Lymphocytes % 3.6 %; Mean Corpuscular HGB Conc 31.8 g/dL (31.6-35.5); Mean Corpuscular Hemoglobin 25.6 pg (28.0-33.3); Mean Corpuscular Volume 80.4 fL (83.0-100.0); Mean Platelet Volume 9.7 fL (9.4-12.4); Monocytes # 0.5 K/mcL (0.0-1.3); Monocytes % 2.3 %; Neutrophils # 18.4 K/mcL (1.6-8.9); Platelet Count 182 K/mcL (140-400); Red Blood Count 4.54 M/mcL (3.82-4.97); Red Cell Distribution Width 17.6 % (11.5-14.5); Segmented Neutrophils % 91.7 %; White Blood Count 20.1 K/mcL (4.3-11.1)
[2020-09-21] MEDS: *HR* Heparin 5,000 UNIT/ML VIAL SQ SCH ×2 (04:36→17:55)
[2020-09-21] MEDS: Insulin LISPRO 300 UNITS/3 ML VIAL SQ SCH ×4 (07:49→21:13)
[2020-09-21] MEDS: *HR* LORazepam 2 MG/ML VIAL IVP PRN (08:29)
[2020-09-21] MEDS: Aspirin Enteric Coated 81 MG Tablet PO SCH (09:11)
[2020-09-21] MEDS: Sulfamethoxazole/Trimeth DS 1 EACH TABLET PO SCH (09:11)
[2020-09-21] MEDS: amLODIPine 5 MG TABLET PO SCH (09:12)
[2020-09-21] MEDS: Isosorbide MONOnitrate (24 HR) 60 MG TAB.ER.24H PO SCH (09:12)
[2020-09-21] MEDS: hydrALAZINE 25 MG TABLET PO SCH ×3 (09:12→21:10)
[2020-09-21] MEDS: Loratadine 10 MG TABLET PO SCH (09:12)
[2020-09-21] MEDS: PANTOPRAZOLE SODIUM 20 MG PO SCH (09:14)
[2020-09-21] MEDS: Metoprolol XL (24 HR) Succ 50 MG TAB.ER.24H PO SCH (09:14)
[2020-09-21] MEDS: Thiamine (B-1) 100 MG TABLET PO SCH (09:15)
[2020-09-21] MEDS: polyethylene glycoL 3350 17 GM POWD.PACK PO PRN (09:23)
[2020-09-21] MEDS: *HR* LORazepam 0.5 MG TABLET PO SCH ×2 (10:26→21:09)
[2020-09-21 15:16] LABS: Calcium 9.3 mg/dL (8.6-10.3); Potassium 5.1 mEq/L (3.5-5.1)
[2020-09-21] MEDS: Acetaminophen 325 MG TABLET PO PRN (21:08)
[2020-09-21] MEDS: traZODone 50 MG TABLET PO SCH (21:10)
[2020-09-21] MEDS: Insulin DETEMIR 100 UNIT/ML X5UNITS SQ SCH (21:12)
[2020-09-22] MEDS: MethylPREDNISolone 40 MG/ML VIAL IVP SCH ×3 (00:29→15:50)
[2020-09-22] MEDS: Cefepime HCl 1,000 MG in Water for inj. (sterile) 10 ML IVP SCH ×2 (00:30→11:11)
[2020-09-22] MEDS: Ipratropium/Albuterol Neb 3 ML IH SCH ×6 (04:15→23:41)
[2020-09-22 04:28] LABS: Basophils % 0.1 %; Eosinophils % 0.1 %; Hematocrit 37.4 % (35.3-44.9); Hemoglobin 11.6 g/dL (11.5-15.4); Immature Granulocytes % 0.7 % (0-4); Lymphocytes # 0.5 K/mcL (0.6-4.6); Lymphocytes % 2.9 %; Mean Corpuscular Hemoglobin 25.1 pg (28.0-33.3); Monocytes # 0.4 K/mcL (0.0-1.3); Monocytes % 2.5 %; Neutrophils # 16.3 K/mcL (1.6-8.9); Platelet Count 182 K/mcL (140-400); Red Blood Count 4.62 M/mcL (3.82-4.97); Red Cell Distribution Width 17.2 % (11.5-14.5); Segmented Neutrophils % 93.7 %; White Blood Count 17.4 K/mcL (4.3-11.1)
[2020-09-22] MEDS: *HR* Heparin 5,000 UNIT/ML VIAL SQ SCH ×2 (04:41→17:53)
[2020-09-22 04:47] LABS: Calcium 9.4 mg/dL (8.6-10.3); Potassium 5.2 mEq/L (3.5-5.1)
[2020-09-22] MEDS: Aspirin Enteric Coated 81 MG Tablet PO SCH (08:27)
[2020-09-22] MEDS: Metoprolol XL (24 HR) Succ 50 MG TAB.ER.24H PO SCH (08:27)
[2020-09-22] MEDS: *HR* LORazepam 0.5 MG TABLET PO SCH ×2 (08:28→22:04)
[2020-09-22] MEDS: hydrALAZINE 25 MG TABLET PO SCH ×3 (08:28→22:04)
[2020-09-22] MEDS: Sulfamethoxazole/Trimeth DS 1 EACH TABLET PO SCH (08:28)
[2020-09-22] MEDS: Thiamine (B-1) 100 MG TABLET PO SCH (08:28)
[2020-09-22] MEDS: Isosorbide MONOnitrate (24 HR) 60 MG TAB.ER.24H PO SCH (08:28)
[2020-09-22] MEDS: amLODIPine 5 MG TABLET PO SCH (08:28)
[2020-09-22] MEDS: Loratadine 10 MG TABLET PO SCH (08:28)
[2020-09-22] MEDS: PANTOPRAZOLE SODIUM 20 MG PO SCH (08:30)
[2020-09-22] MEDS: Insulin LISPRO 300 UNITS/3 ML VIAL SQ SCH ×4 (08:34→22:05)
[2020-09-22] MEDS ORDERED: Sennosides 8.6 MG TABLET PO ONE (10:30)
[2020-09-22] MEDS: polyethylene glycoL 3350 17 GM POWD.PACK PO PRN (10:51)
[2020-09-22] MEDS: *HR* LORazepam 2 MG/ML VIAL IVP PRN (12:21)
[2020-09-22] MEDS ORDERED: Insulin DETEMIR 100 UNIT/ML X5UNITS SQ SCH (21:00)
[2020-09-22] MEDS: traZODone 50 MG TABLET PO SCH (22:04)
[2020-09-23] MEDS: MethylPREDNISolone 40 MG/ML VIAL IVP SCH ×3 (01:16→15:22)
[2020-09-23] MEDS: Cefepime HCl 1,000 MG in Water for inj. (sterile) 10 ML IVP SCH ×2 (01:18→13:30)
[2020-09-23] MEDS: Ipratropium/Albuterol Neb 3 ML IH SCH ×6 (03:58→23:51)
[2020-09-23] MEDS: *HR* Heparin 5,000 UNIT/ML VIAL SQ SCH ×2 (05:57→19:32)
[2020-09-23] MEDS: Isosorbide MONOnitrate (24 HR) 60 MG TAB.ER.24H PO SCH (08:45)
[2020-09-23] MEDS: hydrALAZINE 25 MG TABLET PO SCH ×3 (08:45→21:19)
[2020-09-23] MEDS: Aspirin Enteric Coated 81 MG Tablet PO SCH (08:45)
[2020-09-23] MEDS: Thiamine (B-1) 100 MG TABLET PO SCH (08:45)
[2020-09-23] MEDS: Sulfamethoxazole/Trimeth DS 1 EACH TABLET PO SCH (08:45)
[2020-09-23] MEDS: Loratadine 10 MG TABLET PO SCH (08:45)
[2020-09-23] MEDS: *HR* LORazepam 0.5 MG TABLET PO SCH ×2 (08:45→21:20)
[2020-09-23] MEDS: amLODIPine 5 MG TABLET PO SCH (08:46)
[2020-09-23] MEDS: Metoprolol XL (24 HR) Succ 50 MG TAB.ER.24H PO SCH (08:46)
[2020-09-23] MEDS: PANTOPRAZOLE SODIUM 20 MG PO SCH (08:48)
[2020-09-23] MEDS: polyethylene glycoL 3350 17 GM POWD.PACK PO PRN (08:48)
[2020-09-23] MEDS: Insulin LISPRO 300 UNITS/3 ML VIAL SQ SCH ×4 (08:48→21:20)
[2020-09-23 09:38] LABS: Calcium 9.2 mg/dL (8.6-10.3); Potassium 4.4 mEq/L (3.5-5.1)
[2020-09-23] MEDS: traZODone 50 MG TABLET PO SCH (21:19)
[2020-09-23] MEDS: Insulin DETEMIR 100 UNIT/ML X5UNITS SQ SCH (21:20)
[2020-09-24] MEDS: Cefepime HCl 1,000 MG in Water for inj. (sterile) 10 ML IVP SCH ×2 (00:54→11:13)
[2020-09-24] MEDS: MethylPREDNISolone 40 MG/ML VIAL IVP SCH ×3 (00:55→16:42)
[2020-09-24] MEDS: Ipratropium/Albuterol Neb 3 ML IH SCH ×5 (03:35→19:44)
[2020-09-24] MEDS: *HR* Heparin 5,000 UNIT/ML VIAL SQ SCH ×2 (05:41→17:44)
[2020-09-24] MEDS: Insulin LISPRO 300 UNITS/3 ML VIAL SQ SCH ×4 (08:08→21:40)
[2020-09-24] MEDS: Metoprolol XL (24 HR) Succ 50 MG TAB.ER.24H PO SCH ×2 (08:09→11:13)
[2020-09-24] MEDS: Thiamine (B-1) 100 MG TABLET PO SCH (08:09)
[2020-09-24] MEDS: hydrALAZINE 25 MG TABLET PO SCH ×3 (08:10→21:39)
[2020-09-24] MEDS: *HR* LORazepam 0.5 MG TABLET PO SCH ×2 (08:10→21:39)
[2020-09-24] MEDS: Aspirin Enteric Coated 81 MG Tablet PO SCH (08:10)
[2020-09-24] MEDS: Isosorbide MONOnitrate (24 HR) 60 MG TAB.ER.24H PO SCH (08:10)
[2020-09-24] MEDS: Sulfamethoxazole/Trimeth DS 1 EACH TABLET PO SCH (08:10)
[2020-09-24] MEDS: amLODIPine 5 MG TABLET PO SCH (08:10)
[2020-09-24] MEDS: Loratadine 10 MG TABLET PO SCH (08:10)
[2020-09-24] MEDS: PANTOPRAZOLE SODIUM 20 MG PO SCH (08:11)
[2020-09-24] MEDS: Insulin DETEMIR 100 UNIT/ML X5UNITS SQ SCH ×2 (08:16→21:40)
[2020-09-24] MEDS: traZODone 50 MG TABLET PO SCH (21:39)
[2020-09-25] MEDS: MethylPREDNISolone 40 MG/ML VIAL IVP SCH ×2 (00:04→08:27)
[2020-09-25] MEDS: Cefepime HCl 1,000 MG in Water for inj. (sterile) 10 ML IVP SCH ×2 (00:04→11:36)
[2020-09-25] MEDS: Ipratropium/Albuterol Neb 3 ML IH SCH ×6 (00:09→20:01)
[2020-09-25] MEDS: *HR* Heparin 5,000 UNIT/ML VIAL SQ SCH ×2 (05:45→16:47)
[2020-09-25 06:19] LABS: Basophils % 0.1 %; Eosinophils % 0.1 %; Hematocrit 34.2 % (35.3-44.9); Hemoglobin 10.7 g/dL (11.5-15.4); Immature Granulocytes % 0.8 % (0-4); Lymphocytes # 0.6 K/mcL (0.6-4.6); Lymphocytes % 4.6 %; Mean Corpuscular HGB Conc 31.3 g/dL (31.6-35.5); Mean Corpuscular Hemoglobin 25.5 pg (28.0-33.3); Mean Corpuscular Volume 81.4 fL (83.0-100.0); Mean Platelet Volume 10.4 fL (9.4-12.4); Monocytes # 0.4 K/mcL (0.0-1.3); Monocytes % 2.6 %; Neutrophils # 12.7 K/mcL (1.6-8.9); Platelet Count 103 K/mcL (140-400); Red Cell Distribution Width 17.5 % (11.5-14.5); Segmented Neutrophils % 91.8 %; White Blood Count 13.8 K/mcL (4.3-11.1)
[2020-09-25 06:30] LABS: Calcium 9.3 mg/dL (8.6-10.3)
[2020-09-25] MEDS: Insulin LISPRO 300 UNITS/3 ML VIAL SQ SCH ×4 (08:27→20:35)
[2020-09-25] MEDS: Metoprolol XL (24 HR) Succ 50 MG TAB.ER.24H PO SCH (08:28)
[2020-09-25] MEDS: Isosorbide MONOnitrate (24 HR) 60 MG TAB.ER.24H PO SCH (08:28)
[2020-09-25] MEDS: hydrALAZINE 25 MG TABLET PO SCH ×3 (08:28→20:51)
[2020-09-25] MEDS: Sulfamethoxazole/Trimeth DS 1 EACH TABLET PO SCH (08:28)
[2020-09-25] MEDS: Aspirin Enteric Coated 81 MG Tablet PO SCH (08:28)
[2020-09-25] MEDS: *HR* LORazepam 0.5 MG TABLET PO SCH ×2 (08:28→20:51)
[2020-09-25] MEDS: amLODIPine 5 MG TABLET PO SCH (08:28)
[2020-09-25] MEDS: Thiamine (B-1) 100 MG TABLET PO SCH (08:28)
[2020-09-25] MEDS: Loratadine 10 MG TABLET PO SCH (08:28)
[2020-09-25] MEDS: PANTOPRAZOLE SODIUM 20 MG PO SCH (08:30)
[2020-09-25] MEDS: Insulin DETEMIR 100 UNIT/ML X5UNITS SQ SCH ×2 (08:33→20:52)
[2020-09-25] MEDS: traZODone 50 MG TABLET PO SCH (20:51)
[2020-09-26] MEDS: Ipratropium/Albuterol Neb 3 ML IH SCH ×5 (00:29→16:23)
[2020-09-26 04:33] LABS: Basophils % 0.1 %; Eosinophils # 0.2 K/mcL (0.0-0.6); Eosinophils % 1.8 %; Hematocrit 36.7 % (35.3-44.9); Hemoglobin 11.2 g/dL (11.5-15.4); Immature Granulocytes % 0.4 % (0-4); Lymphocytes # 1.3 K/mcL (0.6-4.6); Mean Corpuscular HGB Conc 30.5 g/dL (31.6-35.5); Mean Corpuscular Hemoglobin 25.5 pg (28.0-33.3); Mean Corpuscular Volume 83.6 fL (83.0-100.0); Mean Platelet Volume 9.5 fL (9.4-12.4); Monocytes # 0.5 K/mcL (0.0-1.3); Monocytes % 4.5 %; Neutrophils # 9.9 K/mcL (1.6-8.9); Nucleated Red Blood Cells 0.2 /100 WBC (0); Platelet Count 100 K/mcL (140-400); Red Blood Count 4.39 M/mcL (3.82-4.97); Red Cell Distribution Width 18.2 % (11.5-14.5); Segmented Neutrophils % 82.2 %
[2020-09-26 04:53] LABS: Calcium 9.1 mg/dL (8.6-10.3); Potassium 4.9 mEq/L (3.5-5.1)
[2020-09-26] MEDS: *HR* Heparin 5,000 UNIT/ML VIAL SQ SCH ×2 (06:21→16:36)
[2020-09-26] MEDS: Insulin LISPRO 300 UNITS/3 ML VIAL SQ SCH ×3 (07:58→16:35)
[2020-09-26] MEDS: Thiamine (B-1) 100 MG TABLET PO SCH (08:03)
[2020-09-26] MEDS: Isosorbide MONOnitrate (24 HR) 60 MG TAB.ER.24H PO SCH (08:04)
[2020-09-26] MEDS: Sulfamethoxazole/Trimeth DS 1 EACH TABLET PO SCH (08:04)
[2020-09-26] MEDS: amLODIPine 5 MG TABLET PO SCH (08:04)
[2020-09-26] MEDS: hydrALAZINE 25 MG TABLET PO SCH ×2 (08:04→15:21)
[2020-09-26] MEDS: Metoprolol XL (24 HR) Succ 50 MG TAB.ER.24H PO SCH (08:05)
[2020-09-26] MEDS: *HR* LORazepam 0.5 MG TABLET PO SCH (08:05)
[2020-09-26] MEDS: Loratadine 10 MG TABLET PO SCH (08:05)
[2020-09-26] MEDS: Aspirin Enteric Coated 81 MG Tablet PO SCH (08:05)
[2020-09-26] MEDS: PANTOPRAZOLE SODIUM 20 MG PO SCH (08:05)
[2020-09-26] MEDS: Insulin DETEMIR 100 UNIT/ML X5UNITS SQ SCH (08:10)
[2020-09-26] MEDS ORDERED: predniSONE 20 MG TABLET PO SCH (09:00)
[2020-09-26] MEDS ORDERED: Lidocaine Viscous Oral Soln 15 ML SOLUTION MM PRN (09:10)
[2020-09-26] MEDS ORDERED: Saliva Stimulant 100ml BOTTLE PO PRN (11:57)
[2020-09-26] MEDS ORDERED: Nitroglycerin 0.4 MG TAB.SUBL SL PRN (11:59)
[2020-09-26] MEDS ORDERED: Nitroglycerin 0.4 MG TAB.SUBL SL ONE (12:00)
[2020-09-26] MEDS ORDERED: 0.9 % Sodium Chloride 1,000 ML IVC SCH (13:15)
[2020-09-26] MEDS: Chloraseptic Spray 177 ML BOTTLE MM SCH ×2 (13:16→16:36)
[2020-09-26 18:46] VITALS: BP 115/68
== END 2020-09-26 19:28 | disposition short-term general hospital (02) | DRG 871 ==
LOC: 2ANU 20:49 → EMEROOARM 20:49 → 2NNU 09-06 00:06 → SUATTDRO 09-06 00:10 → 2NNU 09-06 02:47
PROVIDERS: ADMIT Student in an Organized Health Care Education/Training Program; ATTEND Internal Medicine
PROC: ENDOBRF (2020-09-16 07:45)